=== PATIENT | male | born 1940 | race Caucasian/White ===

== ENCOUNTER 2018-08-02 15:50 | Inpatient (IN) ==
[2018-08-02] MEDS: ALBUTEROL/IPRATROPIUM 3 ML NEB RESP TX SCH ×2 (16:45→19:03)
[2018-08-02] MEDS ORDERED: methylPREDNISolone SOD SUC 125 MG/2 ML VIAL IV SCH (17:00)
[2018-08-02] MEDS ORDERED: ONDANSETRON 4 MG/2 ML VIAL IV PRN (17:19)
[2018-08-02] MEDS ORDERED: ACETAMINOPHEN 325 MG TABLET PO PRN (17:19)
[2018-08-02] MEDS ORDERED: AMINOPHYLLINE 250 MG in SODIUM CHLORIDE 0.9% 100 ML IV ONE (17:21)
[2018-08-02 17:53] LABS: Basophils % 0.1 % (0.0-0.8); Hemoglobin 14.2 GM/DL (14.0-18.0); Immature Granulocytes % 0.3 %; Immature Granulocytes Absolute 0.04 #; Lymphocytes # 0.9 10*3/uL (1.4-4.0); Lymphocytes % 7.7 % (21.2-54.2); Mean Corpuscular HGB Conc 31.6 GM/DL (32-36); Mean Corpuscular Hemoglobin 26 PG (27-34); Mean Corpuscular Volume 83.3 FL (87-102); Mean Platelet Volume 10.9 FL (9.6-12.0); Monocytes # 0.8 10*3/uL (0.11-0.8); Monocytes % 6.6 % (1.7-12.7); Neutrophils # 9.8 10*3/uL (1.4-7.4); Neutrophils % 85.3 % (38.7-73.9); Platelet Count 144 T/CUMM (130-400); Red Cell Distribution Width 16.6 % (9.3-17.3); White Blood Count 11.5 T/CUMM (4-12)
[2018-08-02] MEDS ORDERED: PIPERACILLIN/TAZOBACTAM 3,375 MG in SODIUM CHLORIDE 0.9% 100 ML IV SCH (18:00)
[2018-08-02] MEDS: methylPREDNISolone SOD SUC 40 MG/1 ML VIAL IV SCH (18:07)
[2018-08-02 18:11] LABS: Calcium 9.2 MG/DL (8.5-10.1); Osmolality,Calculated 284.3 MOS/KG (273-304); Potassium 4.9 MMOL/L (3.5-5.1)
[2018-08-02] MEDS ORDERED: DEXTROSE 50% 25 GM/50 ML SYRINGE IV PRN (18:17)
[2018-08-02] MEDS ORDERED: GLUCAGON 1 MG VIAL IM PRN (18:17)
[2018-08-02] MEDS: AMINOPHYLLINE 500 MG in SODIUM CHLORIDE 0.9% 480 ML IV SCH (18:20)
[2018-08-02] MEDS: PIPERACILLIN/TAZOBACTAM 3,375 MG in SODIUM CHLORIDE 0.9% 100 ML IV SCH (18:24)
[2018-08-02] MEDS: SODIUM CHLORIDE 0.9% 1,000 ML IV SCH (19:07)
[2018-08-02] MEDS: LEVOFLOXACIN INJ 750 MG in PREMIX 1 EACH IV SCH (21:06)
[2018-08-02] MEDS: DILTIAZEM CD 180 MG CAPSULE PO SCH (21:13)
[2018-08-02] MEDS: guaiFENesin/DM ER 600-30 MG TABLET PO SCH (21:13)
[2018-08-02] MEDS: MONTELUKAST 10 MG TABLET PO SCH (21:14)
[2018-08-02] MEDS: INSULIN REGULAR 100 UNIT/ML SUBCUT SCH (21:14)
[2018-08-02] MEDS: BUDESONIDE/FORMOTEROL 160-4.5 INHALER 6 GM INH SCH (21:17)
[2018-08-02] MEDS: APIXABAN 5 MG TABLET PO SCH (21:21)
[2018-08-03] MEDS: ALBUTEROL/IPRATROPIUM 3 ML NEB RESP TX SCH ×4 (00:36→19:38)
[2018-08-03] MEDS: methylPREDNISolone SOD SUC 40 MG/1 ML VIAL IV SCH ×5 (01:19→23:01)
[2018-08-03] MEDS: PIPERACILLIN/TAZOBACTAM 3,375 MG in SODIUM CHLORIDE 0.9% 100 ML IV SCH ×3 (01:30→17:56)
[2018-08-03 04:42] LABS: Calcium 8.8 MG/DL (8.5-10.1); Osmolality,Calculated 284.4 MOS/KG (273-304); Potassium 3.8 MMOL/L (3.5-5.1); Thyroid Stimulating Hormone 0.836 uIU/ml (0.358-3.74)
[2018-08-03] MEDS: SODIUM CHLORIDE 0.9% 1,000 ML IV SCH ×2 (05:07→14:41)
[2018-08-03] MEDS: AMINOPHYLLINE 500 MG in SODIUM CHLORIDE 0.9% 480 ML IV SCH ×2 (06:45→17:56)
[2018-08-03] MEDS: ALUMINUM/MAGNES/SIMETH MAX STR 30 ML UDCUP PO PRN ×2 (08:36→22:18)
[2018-08-03] MEDS: MONTELUKAST 10 MG TABLET PO SCH ×2 (08:38→22:19)
[2018-08-03] MEDS: APIXABAN 5 MG TABLET PO SCH ×2 (08:38→22:19)
[2018-08-03] MEDS: guaiFENesin/DM ER 600-30 MG TABLET PO SCH ×2 (08:38→22:19)
[2018-08-03] MEDS: DILTIAZEM CD 180 MG CAPSULE PO SCH ×2 (08:39→22:19)
[2018-08-03] MEDS: BUDESONIDE/FORMOTEROL 160-4.5 INHALER 6 GM INH SCH ×2 (08:39→23:37)
[2018-08-03] MEDS: PANTOPRAZOLE 40 MG TABLET PO SCH (08:39)
[2018-08-03] MEDS: INSULIN REGULAR 100 UNIT/ML SUBCUT SCH ×4 (08:40→22:20)
[2018-08-03 09:24] LABS: Albumin 3.3 G/DL (3.4-5.0); Bilirubin,Direct 0.16 MG/DL (0.0-0.20); Bilirubin,Indirect 0.3 MG/DL (0.0-1.0); Bilirubin,Total 0.5 MG/DL (0.2-1.0); Total Protein 7.3 G/DL (6.4-8.3)
[2018-08-03] MEDS: LORazepam 2 MG/1 ML VIAL IV PRN (09:59)
[2018-08-03] MEDS ORDERED: ALUM/MAG/SIMETH/LIDO VISC 1:1 30 ML BOTTLE PO ONE (14:34)
[2018-08-04] MEDS ORDERED: PROMETHAZINE INJ 12.5 MG in SODIUM CHLORIDE 0.9% 50 ML IV ONE (00:40)
[2018-08-04] MEDS ORDERED: LEVALBUTEROL 1.25 MG/3 ML NEB RESP TX PRN (00:53)
[2018-08-04] MEDS ORDERED: LEVALBUTEROL 1.25 MG/3 ML NEB RESP TX SCH (01:07)
[2018-08-04] MEDS: ALBUTEROL/IPRATROPIUM 3 ML NEB RESP TX SCH (01:14)
[2018-08-04 01:46] LABS: Troponin I 0.108 NG/ML (0.00-0.045)
[2018-08-04] MEDS: LEVOFLOXACIN INJ 750 MG in PREMIX 1 EACH IV SCH (03:31)
[2018-08-04] MEDS: PIPERACILLIN/TAZOBACTAM 3,375 MG in SODIUM CHLORIDE 0.9% 100 ML IV SCH ×3 (06:18→18:40)
[2018-08-04] MEDS: methylPREDNISolone SOD SUC 40 MG/1 ML VIAL IV SCH ×3 (06:19→18:01)
[2018-08-04] MEDS: ALUMINUM/MAGNES/SIMETH MAX STR 30 ML UDCUP PO PRN (06:21)
[2018-08-04 06:32] LABS: Basophils % 0.1 % (0.0-0.8); Hematocrit 40.5 VOL% (42.0-52.0); Hemoglobin 12.5 GM/DL (14.0-18.0); Immature Granulocytes % 1.5 %; Immature Granulocytes Absolute 0.37 #; Lymphocytes # 0.6 10*3/uL (1.4-4.0); Lymphocytes % 2.3 % (21.2-54.2); Mean Corpuscular HGB Conc 30.9 GM/DL (32-36); Mean Corpuscular Hemoglobin 26 PG (27-34); Mean Corpuscular Volume 83.5 FL (87-102); Mean Platelet Volume 11.5 FL (9.6-12.0); Monocytes # 1.6 10*3/uL (0.11-0.8); Monocytes % 6.8 % (1.7-12.7); Neutrophils # 21.4 10*3/uL (1.4-7.4); Neutrophils % 89.3 % (38.7-73.9); Platelet Count 205 T/CUMM (130-400); Red Blood Count 4.85 MC/CUMM (3.8-5.5); Red Cell Distribution Width 16.4 % (9.3-17.3)
[2018-08-04 06:53] LABS: Band Neutrophils 1 % (0-10); Lymphocytes 3 % (20-55); Platelet Estimate Adequate; Segmented Neutrophils 90 % (50-85); Total Cells Counted 100
[2018-08-04 06:54] LABS: Hypochromasia 1+
[2018-08-04 06:59] LABS: Bilirubin,Total 0.4 MG/DL (0.2-1.0); Calcium 8.3 MG/DL (8.5-10.1); Osmolality,Calculated 293.3 MOS/KG (273-304); Potassium 3.9 MMOL/L (3.5-5.1); Total Protein 6.6 G/DL (6.4-8.3)
[2018-08-04 07:13] LABS: % Iron Saturation 9.6 % (18-50)
[2018-08-04] MEDS: LEVALBUTEROL 1.25 MG/3 ML NEB RESP TX SCH ×3 (08:00→19:58)
[2018-08-04] MEDS: PANTOPRAZOLE 40 MG TABLET PO SCH (09:49)
[2018-08-04] MEDS: MONTELUKAST 10 MG TABLET PO SCH ×2 (09:49→21:47)
[2018-08-04] MEDS: guaiFENesin/DM ER 600-30 MG TABLET PO SCH ×2 (09:50→21:47)
[2018-08-04] MEDS: DILTIAZEM CD 180 MG CAPSULE PO SCH ×2 (09:50→21:47)
[2018-08-04] MEDS: APIXABAN 5 MG TABLET PO SCH ×2 (09:50→21:48)
[2018-08-04] MEDS: INSULIN REGULAR 100 UNIT/ML SUBCUT SCH ×4 (09:50→21:48)
[2018-08-04] MEDS: BUDESONIDE/FORMOTEROL 160-4.5 INHALER 6 GM INH SCH ×2 (09:51→21:49)
[2018-08-04] MEDS: FERROUS SULFATE 325 MG TABLET PO SCH ×2 (13:32→21:47)
[2018-08-04] MEDS: ALBUTEROL/IPRATROPIUM 3 ML NEB RESP TX PRN (17:21)
[2018-08-04] MEDS: SODIUM CHLORIDE 0.9% 1,000 ML IV SCH ×2 (17:59)
[2018-08-04] MEDS: AMINOPHYLLINE 500 MG in SODIUM CHLORIDE 0.9% 480 ML IV SCH (18:05)
[2018-08-04] MEDS: ALUMINUM/MAGNES/SIMETH MAX STR 30 ML UDCUP PO SCH (21:48)
[2018-08-04] MEDS: LORazepam 2 MG/1 ML VIAL IV PRN (21:58)
[2018-08-05] MEDS ORDERED: FUROSEMIDE 20 MG/2 ML VIAL IV ONE (00:36)
[2018-08-05] MEDS: methylPREDNISolone SOD SUC 40 MG/1 ML VIAL IV SCH ×2 (03:53→16:49)
[2018-08-05] MEDS: PIPERACILLIN/TAZOBACTAM 3,375 MG in SODIUM CHLORIDE 0.9% 100 ML IV SCH ×3 (03:56→18:52)
[2018-08-05 04:46] LABS: Basophils % 0.1 % (0.0-0.8); Hematocrit 37.4 VOL% (42.0-52.0); Hemoglobin 11.4 GM/DL (14.0-18.0); Immature Granulocytes % 1.5 %; Immature Granulocytes Absolute 0.31 #; Lymphocytes # 0.3 10*3/uL (1.4-4.0); Lymphocytes % 1.4 % (21.2-54.2); Mean Corpuscular HGB Conc 30.5 GM/DL (32-36); Mean Corpuscular Hemoglobin 26 PG (27-34); Mean Corpuscular Volume 84.8 FL (87-102); Mean Platelet Volume 11.8 FL (9.6-12.0); Monocytes # 1.1 10*3/uL (0.11-0.8); Monocytes % 5.4 % (1.7-12.7); Neutrophils % 91.6 % (38.7-73.9); Platelet Count 161 T/CUMM (130-400); Red Blood Count 4.41 MC/CUMM (3.8-5.5); Red Cell Distribution Width 16.4 % (9.3-17.3); White Blood Count 20.8 T/CUMM (4-12)
[2018-08-05 05:20] LABS: Osmolality,Calculated 287.4 MOS/KG (273-304); Potassium 4.3 MMOL/L (3.5-5.1)
[2018-08-05 06:06] LABS: Lymphocytes 1 % (20-55); Segmented Neutrophils 93 % (50-85); Total Cells Counted 100
[2018-08-05 06:07] LABS: Anisocytosis 1+; Platelet Estimate Adequate
[2018-08-05] MEDS: SODIUM CHLORIDE 0.9% 1,000 ML IV SCH (07:20)
[2018-08-05] MEDS: ALBUTEROL/IPRATROPIUM 3 ML NEB RESP TX PRN (07:55)
[2018-08-05] MEDS: LEVALBUTEROL 1.25 MG/3 ML NEB RESP TX SCH ×4 (08:01→19:47)
[2018-08-05] MEDS: APIXABAN 5 MG TABLET PO SCH (10:01)
[2018-08-05] MEDS: MONTELUKAST 10 MG TABLET PO SCH ×2 (10:01→22:29)
[2018-08-05] MEDS: guaiFENesin/DM ER 600-30 MG TABLET PO SCH ×2 (10:01→22:30)
[2018-08-05] MEDS: BENZONATATE 100 MG CAPSULE PO PRN ×2 (10:02→22:30)
[2018-08-05] MEDS: DILTIAZEM CD 180 MG CAPSULE PO SCH ×2 (10:02→22:50)
[2018-08-05] MEDS: FERROUS SULFATE 325 MG TABLET PO SCH ×2 (10:02→22:29)
[2018-08-05] MEDS: PANTOPRAZOLE 40 MG TABLET PO SCH ×2 (10:02→22:29)
[2018-08-05] MEDS: ALUMINUM/MAGNES/SIMETH MAX STR 30 ML UDCUP PO SCH ×3 (10:03→22:28)
[2018-08-05] MEDS: CLORAZEPATE 3.75 MG TABLET PO SCH ×2 (10:06→22:30)
[2018-08-05] MEDS: INSULIN REGULAR 100 UNIT/ML SUBCUT SCH ×4 (10:20→22:26)
[2018-08-05] MEDS: BUDESONIDE/FORMOTEROL 160-4.5 INHALER 6 GM INH SCH (10:25)
[2018-08-05] MEDS ORDERED: DILTIAZEM 30 MG TABLET PO ONE (10:40)
[2018-08-05] MEDS: BUDESONIDE 0.5 MG/2 ML NEB RESP TX SCH ×2 (11:20→19:47)
[2018-08-05] MEDS: ARFORMOTEROL 15 MCG/2 ML NEB RESP TX SCH ×2 (11:20→19:47)
[2018-08-05 11:26] LABS: % Iron Saturation 7.9 % (18-50)
[2018-08-05] MEDS: ENOXAPARIN 100 MG/ML SYRINGE SUBCUT SCH ×2 (13:22→22:30)
[2018-08-05 13:25] LABS: Folate 19.4 NG/ML (5.4-24.0)
[2018-08-05] MEDS: LEVOFLOXACIN INJ 250 MG in PREMIX 1 EACH IV SCH (14:01)
[2018-08-05] MEDS: SUCRALFATE 1 GM/10 ML UDCUP PO SCH ×2 (16:49→22:29)
[2018-08-06] MEDS: LEVALBUTEROL 1.25 MG/3 ML NEB RESP TX SCH ×4 (00:38→20:05)
[2018-08-06] MEDS: methylPREDNISolone SOD SUC 40 MG/1 ML VIAL IV SCH ×2 (04:01→17:00)
[2018-08-06] MEDS: PIPERACILLIN/TAZOBACTAM 3,375 MG in SODIUM CHLORIDE 0.9% 100 ML IV SCH ×3 (04:03→18:05)
[2018-08-06] MEDS: AMINOPHYLLINE 500 MG in SODIUM CHLORIDE 0.9% 480 ML IV SCH ×2 (04:12→11:27)
[2018-08-06 07:44] LABS: Basophils % 0.1 % (0.0-0.8); Hematocrit 40.5 VOL% (42.0-52.0); Hemoglobin 12.6 GM/DL (14.0-18.0); Immature Granulocytes % 1.6 %; Immature Granulocytes Absolute 0.27 #; Lymphocytes # 0.3 10*3/uL (1.4-4.0); Mean Corpuscular HGB Conc 31.1 GM/DL (32-36); Mean Corpuscular Hemoglobin 26 PG (27-34); Mean Corpuscular Volume 83.5 FL (87-102); Mean Platelet Volume 11.6 FL (9.6-12.0); Monocytes # 0.9 10*3/uL (0.11-0.8); Monocytes % 5.6 % (1.7-12.7); Neutrophils # 14.9 10*3/uL (1.4-7.4); Neutrophils % 90.7 % (38.7-73.9); Platelet Count 196 T/CUMM (130-400); Red Blood Count 4.85 MC/CUMM (3.8-5.5); Red Cell Distribution Width 16.1 % (9.3-17.3); White Blood Count 16.4 T/CUMM (4-12)
[2018-08-06] MEDS: BUDESONIDE 0.5 MG/2 ML NEB RESP TX SCH ×2 (07:56→20:05)
[2018-08-06] MEDS: ARFORMOTEROL 15 MCG/2 ML NEB RESP TX SCH ×2 (07:56→20:05)
[2018-08-06 08:07] LABS: Calcium 8.5 MG/DL (8.5-10.1); Osmolality,Calculated 284.4 MOS/KG (273-304); Potassium 4.2 MMOL/L (3.5-5.1)
[2018-08-06 08:38] LABS: Platelet Estimate Normal; Polychromasia Slight; Segmented Neutrophils 95 % (50-85); Total Cells Counted 100
[2018-08-06] MEDS: PANTOPRAZOLE 40 MG TABLET PO SCH ×2 (10:23→22:04)
[2018-08-06] MEDS: DILTIAZEM CD 180 MG CAPSULE PO SCH ×2 (10:24→22:03)
[2018-08-06] MEDS: CLORAZEPATE 3.75 MG TABLET PO SCH ×2 (10:24→22:04)
[2018-08-06] MEDS: MONTELUKAST 10 MG TABLET PO SCH ×2 (10:24→22:04)
[2018-08-06] MEDS: SUCRALFATE 1 GM/10 ML UDCUP PO SCH ×4 (10:25→22:04)
[2018-08-06] MEDS: guaiFENesin/DM ER 600-30 MG TABLET PO SCH ×2 (10:25→22:03)
[2018-08-06] MEDS: ENOXAPARIN 100 MG/ML SYRINGE SUBCUT SCH ×2 (10:25→22:17)
[2018-08-06] MEDS: FERROUS SULFATE 325 MG TABLET PO SCH ×2 (10:25→22:03)
[2018-08-06] MEDS: ALUMINUM/MAGNES/SIMETH MAX STR 30 ML UDCUP PO SCH ×3 (10:26→22:04)
[2018-08-06] MEDS: LEVOFLOXACIN INJ 250 MG in PREMIX 1 EACH IV SCH (10:26)
[2018-08-06] MEDS: INSULIN REGULAR 100 UNIT/ML SUBCUT SCH ×4 (10:26→21:21)
[2018-08-06] MEDS ORDERED: KETOROLAC 30 MG/1 ML VIAL IV ONE (11:01)
[2018-08-06] MEDS ORDERED: ALUM/MAG/SIMETH/LIDO VISC 1:1 30 ML BOTTLE PO ONE (11:01)
[2018-08-06] MEDS ORDERED: MORPHINE 4 MG/1 ML VIAL ONE (11:07)
[2018-08-06] MEDS ORDERED: ASPIRIN 325 MG TABLET ONE (11:07)
[2018-08-06] MEDS ORDERED: NITROGLYCERIN SL 0.4 MG TABLET SL ONE (11:07)
[2018-08-06] MEDS ORDERED: methylPREDNISolone SOD SUC 125 MG/2 ML VIAL IV ONE (11:08)
[2018-08-06] MEDS ORDERED: FUROSEMIDE 40 MG/4 ML VIAL ONE (11:08)
[2018-08-06] MEDS ORDERED: FUROSEMIDE 40 MG/4 ML VIAL IV ONE (11:08)
[2018-08-06] MEDS ORDERED: ALBUTEROL/IPRATROPIUM 3 ML NEB RESP TX ONE (11:11)
[2018-08-06 11:59] LABS: ABG Base Excess 3.3 MMOL/L (-2.5-2.5); ABG HCO3 26.8 MMOL/L (20-26); ABG Oxygen Saturation 98.7 % (95-100); ABG PCO2 37.2 MM HG (35-48); ABG PH 7.475 (7.35-7.45); ABG PO2 145.1 MM HG (80-95); ABG TCO2 27.9 MMOL/L (23-27); Allen Test Positive
[2018-08-07] MEDS: AMINOPHYLLINE 500 MG in SODIUM CHLORIDE 0.9% 480 ML IV SCH (00:38)
[2018-08-07] MEDS: LEVALBUTEROL 1.25 MG/3 ML NEB RESP TX SCH ×4 (00:54→20:05)
[2018-08-07] MEDS: PIPERACILLIN/TAZOBACTAM 3,375 MG in SODIUM CHLORIDE 0.9% 100 ML IV SCH ×3 (02:45→17:40)
[2018-08-07] MEDS: methylPREDNISolone SOD SUC 40 MG/1 ML VIAL IV SCH ×2 (05:03→16:09)
[2018-08-07 05:35] LABS: Basophils % 0.2 % (0.0-0.8); Hemoglobin 11.2 GM/DL (14.0-18.0); Immature Granulocytes % 2.1 %; Immature Granulocytes Absolute 0.26 #; Lymphocytes # 0.2 10*3/uL (1.4-4.0); Lymphocytes % 1.7 % (21.2-54.2); Mean Corpuscular HGB Conc 31.1 GM/DL (32-36); Mean Corpuscular Hemoglobin 26 PG (27-34); Mean Corpuscular Volume 82.6 FL (87-102); Mean Platelet Volume 11.4 FL (9.6-12.0); Monocytes # 0.9 10*3/uL (0.11-0.8); Monocytes % 6.9 % (1.7-12.7); Neutrophils % 89.1 % (38.7-73.9); Platelet Count 166 T/CUMM (130-400); Red Blood Count 4.36 MC/CUMM (3.8-5.5); Red Cell Distribution Width 15.9 % (9.3-17.3); White Blood Count 12.4 T/CUMM (4-12)
[2018-08-07 05:52] LABS: Osmolality,Calculated 288.3 MOS/KG (273-304); Potassium 3.8 MMOL/L (3.5-5.1)
[2018-08-07 05:57] LABS: Band Neutrophils 1 % (0-10); Lymphocytes 1 % (20-55); Segmented Neutrophils 95 % (50-85); Total Cells Counted 100
[2018-08-07 06:00] LABS: Hypochromasia 1+
[2018-08-07 06:01] LABS: Microcytosis 1+; Platelet Estimate Adequate
[2018-08-07] MEDS: ARFORMOTEROL 15 MCG/2 ML NEB RESP TX SCH ×2 (07:03→20:05)
[2018-08-07] MEDS: BUDESONIDE 0.5 MG/2 ML NEB RESP TX SCH ×2 (07:03→20:05)
[2018-08-07] MEDS: SUCRALFATE 1 GM/10 ML UDCUP PO SCH ×4 (07:05→21:25)
[2018-08-07] MEDS: INSULIN REGULAR 100 UNIT/ML SUBCUT SCH ×4 (08:37→20:03)
[2018-08-07] MEDS: PANTOPRAZOLE 40 MG TABLET PO SCH ×2 (08:38→21:27)
[2018-08-07] MEDS: ALUMINUM/MAGNES/SIMETH MAX STR 30 ML UDCUP PO SCH ×3 (08:38→21:24)
[2018-08-07] MEDS: MONTELUKAST 10 MG TABLET PO SCH ×2 (08:39→21:26)
[2018-08-07] MEDS: DILTIAZEM CD 180 MG CAPSULE PO SCH ×2 (08:39→21:27)
[2018-08-07] MEDS: FERROUS SULFATE 325 MG TABLET PO SCH ×2 (08:39→21:27)
[2018-08-07] MEDS: BENZONATATE 100 MG CAPSULE PO PRN ×2 (08:39→21:26)
[2018-08-07] MEDS: CLORAZEPATE 3.75 MG TABLET PO SCH ×2 (08:39→21:27)
[2018-08-07] MEDS: guaiFENesin/DM ER 600-30 MG TABLET PO SCH ×2 (08:39→21:27)
[2018-08-07] MEDS: ENOXAPARIN 100 MG/ML SYRINGE SUBCUT SCH (10:40)
[2018-08-07] MEDS: LEVOFLOXACIN INJ 250 MG in PREMIX 1 EACH IV SCH (10:40)
[2018-08-07] MEDS: THEOPHYLLINE ER (24 HR) 200 MG CAPSULE PO SCH (16:09)
[2018-08-07] MEDS ORDERED: POTASSIUM CHLORIDE 20 MEQ TABLET PO PRN (19:25)
[2018-08-07] MEDS: LORazepam 2 MG/1 ML VIAL IV PRN (21:24)
[2018-08-08] MEDS: LEVALBUTEROL 1.25 MG/3 ML NEB RESP TX SCH ×4 (00:52→20:00)
[2018-08-08] MEDS: methylPREDNISolone SOD SUC 40 MG/1 ML VIAL IV SCH ×2 (03:34→16:59)
[2018-08-08] MEDS: PIPERACILLIN/TAZOBACTAM 3,375 MG in SODIUM CHLORIDE 0.9% 100 ML IV SCH ×3 (03:35→18:36)
[2018-08-08 06:03] LABS: Basophils % 0.2 % (0.0-0.8); Hematocrit 41.5 VOL% (42.0-52.0); Hemoglobin 12.8 GM/DL (14.0-18.0); Immature Granulocytes Absolute 0.33 #; Lymphocytes # 0.3 10*3/uL (1.4-4.0); Mean Corpuscular HGB Conc 30.8 GM/DL (32-36); Mean Corpuscular Hemoglobin 26 PG (27-34); Mean Corpuscular Volume 83.5 FL (87-102); Mean Platelet Volume 11.4 FL (9.6-12.0); Monocytes % 6.2 % (1.7-12.7); Neutrophils # 14.6 10*3/uL (1.4-7.4); Neutrophils % 89.6 % (38.7-73.9); Platelet Count 225 T/CUMM (130-400); Red Blood Count 4.97 MC/CUMM (3.8-5.5); Red Cell Distribution Width 15.9 % (9.3-17.3); White Blood Count 16.3 T/CUMM (4-12)
[2018-08-08 06:05] LABS: PT Patient Result 10.4 SECS; Partial Thromboplastin Time 25.8 SECS (0-40)
[2018-08-08 06:35] LABS: Hypochromasia 1+; Lymphocytes 1 % (20-55); Microcytosis 1+; Platelet Estimate Adequate; Segmented Neutrophils 95 % (50-85); Total Cells Counted 100
[2018-08-08] MEDS ORDERED: diphenhydrAMINE 50 MG/1 ML VIAL IM ONE (07:30)
[2018-08-08] MEDS ORDERED: MEPERIDINE 50 MG/1 ML VIAL IM ONE (07:30)
[2018-08-08] MEDS ORDERED: BENZONATATE 100 MG CAPSULE PO ONE (07:30)
[2018-08-08] MEDS: ARFORMOTEROL 15 MCG/2 ML NEB RESP TX SCH ×2 (07:35→20:00)
[2018-08-08] MEDS: BUDESONIDE 0.5 MG/2 ML NEB RESP TX SCH ×2 (07:35→20:00)
[2018-08-08] MEDS ORDERED: LIDOCAINE 1% 20 ML VIAL MISC INJ ONE (08:00)
[2018-08-08] MEDS ORDERED: LIDOCAINE 2% VISCOUS 100 ML BOTTLE SWISH/SPIT ONE (08:00)
[2018-08-08] MEDS ORDERED: LIDOCAINE 2% 20 ML VIAL RESP TX ONE (08:00)
[2018-08-08] MEDS: SUCRALFATE 1 GM/10 ML UDCUP PO SCH ×4 (08:22→20:05)
[2018-08-08] MEDS: INSULIN REGULAR 100 UNIT/ML SUBCUT SCH ×4 (08:23→21:50)
[2018-08-08] MEDS: LEVOFLOXACIN INJ 250 MG in PREMIX 1 EACH IV SCH (10:01)
[2018-08-08] MEDS: guaiFENesin/DM ER 600-30 MG TABLET PO SCH ×2 (14:48→20:05)
[2018-08-08] MEDS: PANTOPRAZOLE 40 MG TABLET PO SCH ×2 (14:48→20:05)
[2018-08-08] MEDS: MONTELUKAST 10 MG TABLET PO SCH ×2 (14:49→20:05)
[2018-08-08] MEDS: CLORAZEPATE 3.75 MG TABLET PO SCH ×2 (14:49→20:05)
[2018-08-08] MEDS: FERROUS SULFATE 325 MG TABLET PO SCH ×2 (14:49→20:05)
[2018-08-08] MEDS: POLYETHYLENE GLYCOL POWDER 17 GM PACK PO SCH (14:49)
[2018-08-08] MEDS: ALUMINUM/MAGNES/SIMETH MAX STR 30 ML UDCUP PO SCH ×3 (14:52→20:05)
[2018-08-08] MEDS: DILTIAZEM CD 180 MG CAPSULE PO SCH ×2 (14:53→20:05)
[2018-08-08] MEDS: THEOPHYLLINE ER (24 HR) 200 MG CAPSULE PO SCH (16:54)
[2018-08-08] MEDS: LORazepam 2 MG/1 ML VIAL IV PRN (21:26)
[2018-08-09] MEDS: LORazepam 2 MG/1 ML VIAL IV PRN ×2 (01:57→06:13)
[2018-08-09] MEDS: PIPERACILLIN/TAZOBACTAM 3,375 MG in SODIUM CHLORIDE 0.9% 100 ML IV SCH ×2 (01:58→14:07)
[2018-08-09 05:41] LABS: Basophils % 0.2 % (0.0-0.8); Hematocrit 41.9 VOL% (42.0-52.0); Hemoglobin 12.9 GM/DL (14.0-18.0); Immature Granulocytes % 2.2 %; Immature Granulocytes Absolute 0.34 #; Lymphocytes # 0.3 10*3/uL (1.4-4.0); Mean Corpuscular HGB Conc 30.8 GM/DL (32-36); Mean Corpuscular Hemoglobin 26 PG (27-34); Mean Corpuscular Volume 84.3 FL (87-102); Monocytes # 1.3 10*3/uL (0.11-0.8); Monocytes % 8.3 % (1.7-12.7); NRBC # 0.02 10*3/uL; Neutrophils # 13.4 10*3/uL (1.4-7.4); Neutrophils % 87.3 % (38.7-73.9); Platelet Count 208 T/CUMM (130-400); Red Blood Count 4.97 MC/CUMM (3.8-5.5); Red Cell Distribution Width 15.9 % (9.3-17.3); White Blood Count 15.3 T/CUMM (4-12)
[2018-08-09 05:57] LABS: Calcium 8.4 MG/DL (8.5-10.1); Osmolality,Calculated 285.4 MOS/KG (273-304); Potassium 4.6 MMOL/L (3.5-5.1)
[2018-08-09] MEDS: methylPREDNISolone SOD SUC 40 MG/1 ML VIAL IV SCH ×2 (06:12→17:59)
[2018-08-09 06:24] LABS: Lymphocytes 7 % (20-55); Segmented Neutrophils 86 % (50-85); Total Cells Counted 100
[2018-08-09 06:25] LABS: Atypical Lymphocytes Few; Hypersegmented Neutrophil SLIGHT; Hypochromasia 1+; Microcytosis 1+; Platelet Estimate Normal
[2018-08-09] MEDS: INSULIN REGULAR 100 UNIT/ML SUBCUT SCH ×4 (06:38→22:27)
[2018-08-09] MEDS: ARFORMOTEROL 15 MCG/2 ML NEB RESP TX SCH (07:35)
[2018-08-09] MEDS: BUDESONIDE 0.5 MG/2 ML NEB RESP TX SCH ×2 (07:35→19:59)
[2018-08-09] MEDS: LEVALBUTEROL 1.25 MG/3 ML NEB RESP TX SCH ×4 (07:35→19:59)
[2018-08-09] MEDS ORDERED: APIXABAN 5 MG TABLET PO SCH (09:00)
[2018-08-09] MEDS: LEVOFLOXACIN INJ 250 MG in PREMIX 1 EACH IV SCH (09:24)
[2018-08-09] MEDS: MONTELUKAST 10 MG TABLET PO SCH ×2 (09:25→22:25)
[2018-08-09] MEDS: POLYETHYLENE GLYCOL POWDER 17 GM PACK PO SCH (09:25)
[2018-08-09] MEDS: SUCRALFATE 1 GM/10 ML UDCUP PO SCH ×4 (09:25→22:32)
[2018-08-09] MEDS: CLORAZEPATE 3.75 MG TABLET PO SCH ×2 (09:26→22:26)
[2018-08-09] MEDS: ALUMINUM/MAGNES/SIMETH MAX STR 30 ML UDCUP PO SCH ×3 (09:26→22:28)
[2018-08-09] MEDS: guaiFENesin/DM ER 600-30 MG TABLET PO SCH ×2 (09:26→22:25)
[2018-08-09] MEDS: DILTIAZEM CD 180 MG CAPSULE PO SCH ×2 (09:26→22:32)
[2018-08-09] MEDS: FERROUS SULFATE 325 MG TABLET PO SCH ×2 (09:27→22:26)
[2018-08-09] MEDS: PANTOPRAZOLE 40 MG TABLET PO SCH ×2 (09:27→22:32)
[2018-08-09] MEDS: BISACODYL 10 MG SUPP RECTAL ONE ×2 (13:54→14:03)
[2018-08-09] MEDS: THEOPHYLLINE ER (24 HR) 200 MG CAPSULE PO SCH (17:59)
[2018-08-09] MEDS: APIXABAN 2.5 MG TABLET PO SCH (22:26)
[2018-08-10] MEDS: LEVALBUTEROL 1.25 MG/3 ML NEB RESP TX SCH ×4 (00:52→19:57)
[2018-08-10] MEDS: PIPERACILLIN/TAZOBACTAM 3,375 MG in SODIUM CHLORIDE 0.9% 100 ML IV SCH ×2 (01:12→06:58)
[2018-08-10] MEDS: methylPREDNISolone SOD SUC 40 MG/1 ML VIAL IV SCH (04:23)
[2018-08-10] MEDS: ALBUTEROL/IPRATROPIUM 3 ML NEB RESP TX PRN (07:27)
[2018-08-10] MEDS: BUDESONIDE 0.5 MG/2 ML NEB RESP TX SCH ×2 (07:27→19:57)
[2018-08-10] MEDS: INSULIN REGULAR 100 UNIT/ML SUBCUT SCH ×4 (08:50→21:37)
[2018-08-10] MEDS: LEVOFLOXACIN INJ 250 MG in PREMIX 1 EACH IV SCH (09:20)
[2018-08-10] MEDS: PANTOPRAZOLE 40 MG TABLET PO SCH ×2 (09:21→21:37)
[2018-08-10] MEDS: ALUMINUM/MAGNES/SIMETH MAX STR 30 ML UDCUP PO SCH ×3 (09:21→21:36)
[2018-08-10] MEDS: DILTIAZEM CD 180 MG CAPSULE PO SCH ×2 (09:21→21:36)
[2018-08-10] MEDS: POLYETHYLENE GLYCOL POWDER 17 GM PACK PO SCH (09:21)
[2018-08-10] MEDS: guaiFENesin/DM ER 600-30 MG TABLET PO SCH ×2 (09:21→21:36)
[2018-08-10] MEDS: MONTELUKAST 10 MG TABLET PO SCH ×2 (09:21→21:36)
[2018-08-10] MEDS: APIXABAN 2.5 MG TABLET PO SCH ×2 (09:21→21:36)
[2018-08-10] MEDS: SUCRALFATE 1 GM/10 ML UDCUP PO SCH ×4 (09:22→21:36)
[2018-08-10] MEDS: CLORAZEPATE 3.75 MG TABLET PO SCH ×2 (09:22→21:36)
[2018-08-10] MEDS: FERROUS SULFATE 325 MG TABLET PO SCH ×2 (09:22→21:36)
[2018-08-10] MEDS: methylPREDNISolone 4 MG TABLET PO SCH (14:12)
[2018-08-10] MEDS: BENZONATATE 100 MG CAPSULE PO PRN (14:13)
[2018-08-10] MEDS: THEOPHYLLINE ER (24 HR) 200 MG CAPSULE PO SCH (17:40)
[2018-08-11] MEDS: LEVALBUTEROL 1.25 MG/3 ML NEB RESP TX SCH ×2 (02:00→07:20)
[2018-08-11 04:59] LABS: Calcium 8.4 MG/DL (8.5-10.1); Osmolality,Calculated 282.4 MOS/KG (273-304); Potassium 4.5 MMOL/L (3.5-5.1)
[2018-08-11 05:28] LABS: Basophils % 0.2 % (0.0-0.8); Hematocrit 41.5 VOL% (42.0-52.0); Hemoglobin 12.7 GM/DL (14.0-18.0); Immature Granulocytes % 2.9 %; Immature Granulocytes Absolute 0.49 #; Lymphocytes # 0.4 10*3/uL (1.4-4.0); Lymphocytes % 2.4 % (21.2-54.2); Mean Corpuscular HGB Conc 30.6 GM/DL (32-36); Mean Corpuscular Hemoglobin 26 PG (27-34); Mean Corpuscular Volume 84.3 FL (87-102); Mean Platelet Volume 11.7 FL (9.6-12.0); Monocytes # 1.2 10*3/uL (0.11-0.8); Monocytes % 7.3 % (1.7-12.7); Neutrophils # 14.7 10*3/uL (1.4-7.4); Neutrophils % 87.2 % (38.7-73.9); Platelet Count 162 T/CUMM (130-400); Red Blood Count 4.92 MC/CUMM (3.8-5.5); Red Cell Distribution Width 16.6 % (9.3-17.3); White Blood Count 16.9 T/CUMM (4-12)
[2018-08-11 05:42] LABS: Lymphocytes 3 % (20-55); Platelet Estimate Normal; Segmented Neutrophils 95 % (50-85); Total Cells Counted 100
[2018-08-11 05:43] LABS: Polychromasia Few
[2018-08-11] MEDS: BUDESONIDE 0.5 MG/2 ML NEB RESP TX SCH (07:20)
[2018-08-11] MEDS: POLYETHYLENE GLYCOL POWDER 17 GM PACK PO SCH (08:55)
[2018-08-11] MEDS: CLORAZEPATE 3.75 MG TABLET PO SCH (08:56)
[2018-08-11] MEDS: MONTELUKAST 10 MG TABLET PO SCH (08:56)
[2018-08-11] MEDS: PANTOPRAZOLE 40 MG TABLET PO SCH (08:57)
[2018-08-11] MEDS: APIXABAN 2.5 MG TABLET PO SCH (08:57)
[2018-08-11] MEDS: FERROUS SULFATE 325 MG TABLET PO SCH (08:57)
[2018-08-11] MEDS: DILTIAZEM CD 180 MG CAPSULE PO SCH (08:58)
[2018-08-11] MEDS: guaiFENesin/DM ER 600-30 MG TABLET PO SCH (08:58)
[2018-08-11] MEDS ORDERED: LEVOFLOXACIN 500 MG TABLET PO ONE (09:00)
[2018-08-11] MEDS ORDERED: methylPREDNISolone 4 MG TABLET PO SCH (09:00)
[2018-08-11] MEDS ORDERED: predniSONE 20 MG TABLET PO SCH (09:00)
[2018-08-11] MEDS: ALUMINUM/MAGNES/SIMETH MAX STR 30 ML UDCUP PO SCH (09:00)
[2018-08-11] MEDS: SUCRALFATE 1 GM/10 ML UDCUP PO SCH ×2 (09:01→13:09)
[2018-08-11] MEDS: INSULIN REGULAR 100 UNIT/ML SUBCUT SCH ×2 (09:01→13:09)
[2018-08-11] MEDS: BENZONATATE 100 MG CAPSULE PO PRN (09:23)
[2018-08-11 11:52] VITALS: BP 108/66
[2018-08-11] MEDS: methylPREDNISolone 4 MG TABLET PO SCH (13:09)
== END 2018-08-11 15:02 | disposition swing bed (61) | DRG 193 ==
LOC: SUATTDRO 16:36 → N.ICU 16:36 → N.5E 08-03 20:33 → N.ICU 08-06 11:24 → N.5E 08-08 11:07
PROVIDERS: ADMIT Internal Medicine; ATTEND Internal Medicine

== ENCOUNTER 2018-09-04 16:16 | Inpatient (IN) ==
[2018-09-04] MEDS ORDERED: ONDANSETRON 4 MG/2 ML VIAL IV STA (16:45)
[2018-09-04] MEDS ORDERED: methylPREDNISolone SOD SUC 125 MG/2 ML VIAL IV STA (16:45)
[2018-09-04] MEDS ORDERED: ALBUTEROL 2.5 MG/3 ML NEB RESP TX SCH (17:00)
[2018-09-04 17:20] LABS: Basophils % 0.4 % (0.0-0.8); Eosinophils % 0.2 % (0.00-10.9); Hematocrit 46.4 VOL% (42.0-52.0); Hemoglobin 14.3 GM/DL (14.0-18.0); Immature Granulocytes % 1.6 %; Immature Granulocytes Absolute 0.16 #; Lymphocytes # 0.7 10*3/uL (1.4-4.0); Lymphocytes % 7.3 % (21.2-54.2); Mean Corpuscular HGB Conc 30.8 GM/DL (32-36); Mean Corpuscular Hemoglobin 27 PG (27-34); Mean Corpuscular Volume 86.1 FL (87-102); Mean Platelet Volume 11.2 FL (9.6-12.0); Monocytes # 0.6 10*3/uL (0.11-0.8); Monocytes % 5.4 % (1.7-12.7); Neutrophils # 8.6 10*3/uL (1.4-7.4); Neutrophils % 85.1 % (38.7-73.9); Platelet Count 191 T/CUMM (130-400); Red Blood Count 5.39 MC/CUMM (3.8-5.5); Red Cell Distribution Width 19.9 % (9.3-17.3); White Blood Count 10.1 T/CUMM (4-12)
[2018-09-04] MEDS ORDERED: cefTRIAXone 1,000 MG in SODIUM CHLORIDE 0.9% 100 ML IV STA (17:20)
[2018-09-04 17:33] LABS: INR 0.9; PT Patient Result 10.3 SECS
[2018-09-04 17:40] LABS: Albumin 3.2 G/DL (3.4-5.0); Bilirubin,Total 0.4 MG/DL (0.2-1.0); Calcium 9.1 MG/DL (8.5-10.1); Osmolality,Calculated 288.1 MOS/KG (273-304); Potassium 4.7 MMOL/L (3.5-5.1); Total Protein 6.7 G/DL (6.4-8.3)
[2018-09-04 18:44] LABS: ABG Base Excess 0.8 MMOL/L (-2.5-2.5); ABG Oxygen Saturation 93.1 % (95-100); ABG PCO2 36.1 MM HG (35-48); ABG PH 7.441 (7.35-7.45); ABG PO2 66.4 MM HG (80-95); ABG TCO2 21.3 MMOL/L (23-27); Allen Test Positive; Pt O2 Delivery Device Other
[2018-09-04] MEDS ORDERED: ACETAMINOPHEN 500 MG TABLET PO PRN (19:36)
[2018-09-04] MEDS ORDERED: ONDANSETRON 4 MG/2 ML VIAL IV PRN (19:36)
[2018-09-04] MEDS ORDERED: ALUMINUM/MAGNES/SIMETH MAX STR 30 ML UDCUP PO PRN (22:26)
[2018-09-04] MEDS: ALBUTEROL 2.5 MG/3 ML NEB RESP TX PRN (22:35)
[2018-09-05] MEDS: ALBUTEROL/IPRATROPIUM 3 ML NEB RESP TX SCH ×4 (01:09→19:26)
[2018-09-05] MEDS: methylPREDNISolone SOD SUC 40 MG/1 ML VIAL IV SCH ×3 (02:00→17:43)
[2018-09-05] MEDS: AZITHROMYCIN INJ 500 MG in SODIUM CHLORIDE 0.9% 250 ML IV SCH ×2 (02:00→22:46)
[2018-09-05] MEDS: SODIUM CHLORIDE 0.45% 1,000 ML IV SCH (02:00)
[2018-09-05] MEDS: APIXABAN 2.5 MG TABLET PO SCH ×3 (02:15→22:00)
[2018-09-05 05:16] LABS: Basophils % 0.1 % (0.0-0.8); Hematocrit 39.6 VOL% (42.0-52.0); Hemoglobin 12.1 GM/DL (14.0-18.0); Immature Granulocytes % 1.2 %; Immature Granulocytes Absolute 0.08 #; Lymphocytes # 0.5 10*3/uL (1.4-4.0); Lymphocytes % 6.6 % (21.2-54.2); Mean Corpuscular HGB Conc 30.6 GM/DL (32-36); Mean Corpuscular Hemoglobin 26 PG (27-34); Mean Corpuscular Volume 85.5 FL (87-102); Mean Platelet Volume 10.9 FL (9.6-12.0); Monocytes # 0.1 10*3/uL (0.11-0.8); Monocytes % 1.5 % (1.7-12.7); Neutrophils # 6.2 10*3/uL (1.4-7.4); Neutrophils % 90.6 % (38.7-73.9); Platelet Count 167 T/CUMM (130-400); Red Blood Count 4.63 MC/CUMM (3.8-5.5); Red Cell Distribution Width 18.9 % (9.3-17.3); White Blood Count 6.9 T/CUMM (4-12)
[2018-09-05 05:25] LABS: Calcium 8.3 MG/DL (8.5-10.1); Osmolality,Calculated 286.5 MOS/KG (273-304); Potassium 4.8 MMOL/L (3.5-5.1)
[2018-09-05 05:37] LABS: Band Neutrophils 2 % (0-10); Hypochromasia 1+; Lymphocytes 6 % (20-55); Platelet Estimate Adequate; Segmented Neutrophils 90 % (50-85); Total Cells Counted 100
[2018-09-05] MEDS: ALBUTEROL 2.5 MG/3 ML NEB RESP TX PRN (06:51)
[2018-09-05] MEDS: MONTELUKAST 10 MG TABLET PO SCH (09:18)
[2018-09-05] MEDS: PANTOPRAZOLE 40 MG VIAL IV SCH (09:19)
[2018-09-05 09:58] LABS: Allen Test Positive; Pt O2 Delivery Device Other
[2018-09-05 10:01] LABS: ABG Base Excess 0.5 MMOL/L (-2.5-2.5); ABG HCO3 24.8 MMOL/L (20-26); ABG Oxygen Saturation 92.6 % (95-100); ABG PH 7.429 (7.35-7.45); ABG PO2 65.9 MM HG (80-95); ABG TCO2 21.4 MMOL/L (23-27)
[2018-09-05 10:36] LABS: % Iron Saturation 14.3 % (18-50)
[2018-09-05 10:47] LABS: Folate 19.6 NG/ML (5.4-24.0)
[2018-09-05] MEDS: THEOPHYLLINE ER (24 HR) 200 MG CAPSULE PO SCH (13:30)
[2018-09-05] MEDS: BUDESONIDE/FORMOTEROL 160-4.5 INHALER 6 GM INH SCH ×2 (16:38→22:00)
[2018-09-05] MEDS: cefTRIAXone 1,000 MG in SYRINGE 1 EACH IV SCH (19:39)
[2018-09-05] MEDS: DILTIAZEM CD 180 MG CAPSULE PO SCH (21:59)
[2018-09-06] MEDS: ALBUTEROL/IPRATROPIUM 3 ML NEB RESP TX SCH ×4 (00:24→19:25)
[2018-09-06] MEDS: methylPREDNISolone SOD SUC 40 MG/1 ML VIAL IV SCH ×3 (00:45→17:42)
[2018-09-06 04:49] LABS: Basophils % 0.1 % (0.0-0.8); Hematocrit 36.4 VOL% (42.0-52.0); Hemoglobin 11.4 GM/DL (14.0-18.0); Immature Granulocytes Absolute 0.16 #; Lymphocytes # 0.5 10*3/uL (1.4-4.0); Lymphocytes % 3.1 % (21.2-54.2); Mean Corpuscular HGB Conc 31.3 GM/DL (32-36); Mean Corpuscular Hemoglobin 27 PG (27-34); Mean Corpuscular Volume 84.8 FL (87-102); Mean Platelet Volume 10.8 FL (9.6-12.0); Monocytes # 0.5 10*3/uL (0.11-0.8); Neutrophils # 15.2 10*3/uL (1.4-7.4); Neutrophils % 92.8 % (38.7-73.9); Platelet Count 178 T/CUMM (130-400); Red Blood Count 4.29 MC/CUMM (3.8-5.5); Red Cell Distribution Width 18.6 % (9.3-17.3); White Blood Count 16.3 T/CUMM (4-12)
[2018-09-06 05:03] LABS: Calcium 8.3 MG/DL (8.5-10.1); Osmolality,Calculated 290.3 MOS/KG (273-304); Potassium 4.3 MMOL/L (3.5-5.1)
[2018-09-06 05:15] LABS: Hypochromasia 1+; Lymphocytes 1 % (20-55); Microcytosis 1+; Platelet Estimate Adequate; Segmented Neutrophils 95 % (50-85); Total Cells Counted 100
[2018-09-06] MEDS: SODIUM CHLORIDE 0.45% 1,000 ML IV SCH (05:24)
[2018-09-06] MEDS: DILTIAZEM CD 180 MG CAPSULE PO SCH ×2 (09:32→22:55)
[2018-09-06] MEDS: APIXABAN 2.5 MG TABLET PO SCH ×2 (09:32→22:55)
[2018-09-06] MEDS: MONTELUKAST 10 MG TABLET PO SCH (09:32)
[2018-09-06] MEDS: THEOPHYLLINE ER (24 HR) 200 MG CAPSULE PO SCH (09:32)
[2018-09-06] MEDS: PANTOPRAZOLE 40 MG VIAL IV SCH (09:36)
[2018-09-06] MEDS: BUDESONIDE/FORMOTEROL 160-4.5 INHALER 6 GM INH SCH ×2 (09:40→22:57)
[2018-09-06] MEDS: ALBUTEROL 2 MG TABLET PO SCH ×3 (11:07→23:57)
[2018-09-06] MEDS: cefTRIAXone 1,000 MG in SYRINGE 1 EACH IV SCH (20:50)
[2018-09-07] MEDS: ALBUTEROL/IPRATROPIUM 3 ML NEB RESP TX SCH ×4 (00:08→19:37)
[2018-09-07] MEDS: methylPREDNISolone SOD SUC 40 MG/1 ML VIAL IV SCH ×3 (01:34→17:49)
[2018-09-07 05:08] LABS: Basophils % 0.1 % (0.0-0.8); Hematocrit 35.9 VOL% (42.0-52.0); Hemoglobin 11.1 GM/DL (14.0-18.0); Immature Granulocytes % 0.9 %; Immature Granulocytes Absolute 0.15 #; Lymphocytes # 0.4 10*3/uL (1.4-4.0); Lymphocytes % 2.4 % (21.2-54.2); Mean Corpuscular HGB Conc 30.9 GM/DL (32-36); Mean Corpuscular Hemoglobin 26 PG (27-34); Mean Corpuscular Volume 85.5 FL (87-102); Mean Platelet Volume 11.1 FL (9.6-12.0); Monocytes # 0.6 10*3/uL (0.11-0.8); Monocytes % 3.4 % (1.7-12.7); NRBC # 0.02 10*3/uL; Neutrophils # 15.2 10*3/uL (1.4-7.4); Neutrophils % 93.2 % (38.7-73.9); Platelet Count 190 T/CUMM (130-400); Red Cell Distribution Width 18.6 % (9.3-17.3); White Blood Count 16.3 T/CUMM (4-12)
[2018-09-07 05:24] LABS: Calcium 8.4 MG/DL (8.5-10.1); Osmolality,Calculated 288.3 MOS/KG (273-304); Potassium 4.4 MMOL/L (3.5-5.1)
[2018-09-07 05:39] LABS: Segmented Neutrophils 97 % (50-85); Total Cells Counted 100
[2018-09-07 05:40] LABS: Anisocytosis Slight; Microcytosis Slight
[2018-09-07 05:41] LABS: Platelet Estimate Normal
[2018-09-07] MEDS: SODIUM CHLORIDE 0.45% 1,000 ML IV SCH (06:35)
[2018-09-07] MEDS: ALBUTEROL 2 MG TABLET PO SCH ×3 (06:43→22:54)
[2018-09-07] MEDS: PANTOPRAZOLE 40 MG VIAL IV SCH (08:27)
[2018-09-07] MEDS: APIXABAN 2.5 MG TABLET PO SCH ×2 (08:27→22:53)
[2018-09-07] MEDS: MONTELUKAST 10 MG TABLET PO SCH (08:27)
[2018-09-07] MEDS: THEOPHYLLINE ER (24 HR) 200 MG CAPSULE PO SCH (08:27)
[2018-09-07] MEDS: DILTIAZEM CD 180 MG CAPSULE PO SCH ×2 (08:27→22:54)
[2018-09-07] MEDS: BUDESONIDE/FORMOTEROL 160-4.5 INHALER 6 GM INH SCH ×2 (08:31→22:59)
[2018-09-07] MEDS: POLYETHYLENE GLYCOL POWDER 17 GM PACK PO SCH (11:58)
[2018-09-07] MEDS: FLUCONAZOLE 200 MG TABLET PO SCH (11:58)
[2018-09-07] MEDS: cefTRIAXone 1,000 MG in SYRINGE 1 EACH IV SCH (22:59)
[2018-09-08] MEDS: ALBUTEROL/IPRATROPIUM 3 ML NEB RESP TX SCH ×3 (00:07→13:45)
[2018-09-08] MEDS: methylPREDNISolone SOD SUC 40 MG/1 ML VIAL IV SCH ×2 (01:42→10:24)
[2018-09-08 04:42] LABS: Basophils % 0.1 % (0.0-0.8); Hematocrit 36.9 VOL% (42.0-52.0); Hemoglobin 11.3 GM/DL (14.0-18.0); Immature Granulocytes % 1.4 %; Immature Granulocytes Absolute 0.22 #; Lymphocytes # 0.4 10*3/uL (1.4-4.0); Lymphocytes % 2.4 % (21.2-54.2); Mean Corpuscular HGB Conc 30.6 GM/DL (32-36); Mean Corpuscular Hemoglobin 27 PG (27-34); Mean Corpuscular Volume 86.4 FL (87-102); Mean Platelet Volume 10.5 FL (9.6-12.0); Monocytes # 0.5 10*3/uL (0.11-0.8); Monocytes % 3.5 % (1.7-12.7); Neutrophils # 14.3 10*3/uL (1.4-7.4); Neutrophils % 92.6 % (38.7-73.9); Platelet Count 196 T/CUMM (130-400); Red Blood Count 4.27 MC/CUMM (3.8-5.5); Red Cell Distribution Width 18.6 % (9.3-17.3); White Blood Count 15.4 T/CUMM (4-12)
[2018-09-08 04:53] LABS: Calcium 8.3 MG/DL (8.5-10.1); Osmolality,Calculated 290.1 MOS/KG (273-304); Potassium 4.3 MMOL/L (3.5-5.1)
[2018-09-08] MEDS: SODIUM CHLORIDE 0.45% 1,000 ML IV SCH (06:10)
[2018-09-08] MEDS: ALBUTEROL 2 MG TABLET PO SCH (06:11)
[2018-09-08 06:23] LABS: Hypochromasia 1+; Lymphocytes 1 % (20-55); Microcytosis 1+; Nucleated Red Blood Cells 1 (0-5); Segmented Neutrophils 95 % (50-85); Total Cells Counted 100
[2018-09-08 06:24] LABS: Platelet Estimate Adequate
[2018-09-08] MEDS: POLYETHYLENE GLYCOL POWDER 17 GM PACK PO SCH (10:12)
[2018-09-08] MEDS: MONTELUKAST 10 MG TABLET PO SCH (10:12)
[2018-09-08] MEDS: FLUCONAZOLE 200 MG TABLET PO SCH (10:13)
[2018-09-08] MEDS: DILTIAZEM CD 180 MG CAPSULE PO SCH (10:13)
[2018-09-08] MEDS: APIXABAN 2.5 MG TABLET PO SCH (10:13)
[2018-09-08] MEDS: THEOPHYLLINE ER (24 HR) 200 MG CAPSULE PO SCH (10:14)
[2018-09-08] MEDS: BUDESONIDE/FORMOTEROL 160-4.5 INHALER 6 GM INH SCH (10:15)
[2018-09-08] MEDS: PANTOPRAZOLE 40 MG VIAL IV SCH (10:25)
[2018-09-08 11:30] VITALS: BP 122/64
== END 2018-09-08 13:40 | disposition home health service (06) | DRG 190 ==
LOC: N.ED 16:16 → SUATTDRO 19:36 → N.EDINP 19:36 → N.TELEN 21:32
PROVIDERS: ADMIT Internal Medicine Cardiovascular Disease; ATTEND Hospitalist

== ENCOUNTER 2018-09-26 11:14 | Inpatient (IN) ==
[2018-09-26] MEDS ORDERED: LEVOFLOXACIN INJ 750 MG in PREMIX 1 EACH IV STA (11:35)
[2018-09-26] MEDS ORDERED: ALBUTEROL/IPRATROPIUM 3 ML NEB RESP TX STA (11:35)
[2018-09-26] MEDS ORDERED: methylPREDNISolone SOD SUC 125 MG/2 ML VIAL IV STA (11:35)
[2018-09-26] MEDS ORDERED: DILTIAZEM 50 MG/10 ML VIAL IV STA (11:36)
[2018-09-26 12:13] LABS: Basophils % 0.3 % (0.0-0.8); Hematocrit 44.1 VOL% (42.0-52.0); Hemoglobin 13.6 GM/DL (14.0-18.0); Immature Granulocytes % 1.9 %; Immature Granulocytes Absolute 0.25 #; Lymphocytes # 0.5 10*3/uL (1.4-4.0); Lymphocytes % 3.5 % (21.2-54.2); Mean Corpuscular HGB Conc 30.8 GM/DL (32-36); Mean Corpuscular Volume 84.6 FL (87-102); Mean Platelet Volume 10.4 FL (9.6-12.0); Monocytes % 4.2 % (1.7-12.7); Neutrophils % 90.1 % (38.7-73.9); Platelet Count 118 T/CUMM (130-400); Red Blood Count 5.21 MC/CUMM (3.8-5.5); Red Cell Distribution Width 19.2 % (9.3-17.3); White Blood Count 13.2 T/CUMM (4-12)
[2018-09-26 12:33] LABS: Albumin 2.8 G/DL (3.4-5.0); Bilirubin,Total 0.7 MG/DL (0.2-1.0); Calcium 8.7 MG/DL (8.5-10.1); Osmolality,Calculated 278.8 MOS/KG (273-304); Total Protein 6.1 G/DL (6.4-8.3)
[2018-09-26 12:34] LABS: Band Neutrophils 8 % (0-10); Hypochromasia 1+; Lymphocytes 2 % (20-55); Microcytosis 1+; Segmented Neutrophils 81 % (50-85); Total Cells Counted 100
[2018-09-26 12:36] LABS: Platelet Estimate Adequate
[2018-09-26] MEDS ORDERED: MORPHINE 4 MG/1 ML VIAL IV PRN (14:10)
[2018-09-26] MEDS ORDERED: ONDANSETRON 4 MG/2 ML VIAL IV PRN (14:10)
[2018-09-26] MEDS: ALBUTEROL/IPRATROPIUM 3 ML NEB RESP TX PRN (17:55)
[2018-09-26] MEDS: dilTIAZem Drip 125 MG/125 ML PREMIX IV SCH (18:59)
[2018-09-26] MEDS: methylPREDNISolone SOD SUC 40 MG/1 ML VIAL IV SCH (20:04)
[2018-09-26] MEDS: APIXABAN 2.5 MG TABLET PO SCH (20:05)
[2018-09-26] MEDS: BUDESONIDE/FORMOTEROL 160-4.5 INHALER 6 GM INH SCH (20:06)
[2018-09-27] MEDS: ALBUTEROL/IPRATROPIUM 3 ML NEB RESP TX SCH ×4 (02:05→19:35)
[2018-09-27] MEDS: dilTIAZem Drip 125 MG/125 ML PREMIX IV SCH (03:18)
[2018-09-27] MEDS: methylPREDNISolone SOD SUC 40 MG/1 ML VIAL IV SCH ×3 (03:18→17:53)
[2018-09-27 05:06] LABS: Basophils % 0.2 % (0.0-0.8); Hematocrit 38.9 VOL% (42.0-52.0); Hemoglobin 12.1 GM/DL (14.0-18.0); Immature Granulocytes % 1.5 %; Immature Granulocytes Absolute 0.16 #; Lymphocytes # 0.3 10*3/uL (1.4-4.0); Lymphocytes % 2.5 % (21.2-54.2); Mean Corpuscular HGB Conc 31.1 GM/DL (32-36); Mean Platelet Volume 10.8 FL (9.6-12.0); Monocytes % 3.3 % (1.7-12.7); Neutrophils % 92.5 % (38.7-73.9); Platelet Count 113 T/CUMM (130-400); Red Blood Count 4.63 MC/CUMM (3.8-5.5); Red Cell Distribution Width 18.7 % (9.3-17.3)
[2018-09-27 05:27] LABS: Calcium 8.9 MG/DL (8.5-10.1); Osmolality,Calculated 283.7 MOS/KG (273-304); Risk Ratio 2.15; Thyroid Stimulating Hormone 0.391 uIU/ml (0.358-3.74); VLDL CHOLESTEROL 14.6 MG/DL
[2018-09-27 06:33] LABS: Band Neutrophils 3 % (0-10); Lymphocytes 5 % (20-55); Metamyelocytes 1 %; Segmented Neutrophils 84 % (50-85); Total Cells Counted 100
[2018-09-27 06:34] LABS: Hypochromasia Slight; Platelet Estimate Decreased
[2018-09-27] MEDS ORDERED: MONTELUKAST 10 MG TABLET PO SCH (09:00)
[2018-09-27] MEDS: PANTOPRAZOLE 40 MG TABLET PO SCH (09:55)
[2018-09-27] MEDS: APIXABAN 2.5 MG TABLET PO SCH (09:55)
[2018-09-27] MEDS: BUDESONIDE/FORMOTEROL 160-4.5 INHALER 6 GM INH SCH ×2 (09:56→21:42)
[2018-09-27] MEDS: ALBUTEROL/IPRATROPIUM 3 ML NEB RESP TX PRN (10:25)
[2018-09-27] MEDS ORDERED: FUROSEMIDE 40 MG/4 ML VIAL IV ONE (11:07)
[2018-09-27] MEDS: NEBIVOLOL 5 MG TABLET PO SCH ×2 (11:16→21:42)
[2018-09-27] MEDS: DILTIAZEM CD 180 MG CAPSULE PO SCH ×2 (11:17→21:41)
[2018-09-27] MEDS ORDERED: ALBUTEROL 2.5 MG/3 ML NEB RESP TX PRN (11:24)
[2018-09-27] MEDS: DORNASE ALFA 2.5 MG/2.5 ML VIAL RESP TX SCH ×2 (11:31→19:35)
[2018-09-27] MEDS: APIXABAN 5 MG TABLET PO SCH ×2 (11:47→21:42)
[2018-09-27] MEDS ORDERED: LEVOFLOXACIN INJ 750 MG in PREMIX 1 EACH IV SCH (12:00)
[2018-09-27] MEDS ORDERED: AMINOPHYLLINE 250 MG in SODIUM CHLORIDE 0.9% 100 ML IV ONE ×3 (12:00→13:32)
[2018-09-27] MEDS ORDERED: AMINOPHYLLINE 500 MG in SODIUM CHLORIDE 0.9% 480 ML IV SCH ×2 (12:30→17:56)
[2018-09-27] MEDS: MONTELUKAST 10 MG TABLET PO SCH (21:41)
[2018-09-28] MEDS: ALBUTEROL/IPRATROPIUM 3 ML NEB RESP TX SCH ×4 (00:59→19:23)
[2018-09-28] MEDS: methylPREDNISolone SOD SUC 40 MG/1 ML VIAL IV SCH ×5 (01:25→23:20)
[2018-09-28 05:11] LABS: Basophils % 0.2 % (0.0-0.8); Hematocrit 37.7 VOL% (42.0-52.0); Hemoglobin 11.9 GM/DL (14.0-18.0); Immature Granulocytes % 1.3 %; Immature Granulocytes Absolute 0.19 #; Lymphocytes # 0.3 10*3/uL (1.4-4.0); Lymphocytes % 1.8 % (21.2-54.2); Mean Corpuscular HGB Conc 31.6 GM/DL (32-36); Mean Platelet Volume 11.3 FL (9.6-12.0); Monocytes % 3.1 % (1.7-12.7); NRBC # 0.04 10*3/uL; Neutrophils % 93.6 % (38.7-73.9); Platelet Count 133 T/CUMM (130-400); Red Blood Count 4.54 MC/CUMM (3.8-5.5); Red Cell Distribution Width 18.8 % (9.3-17.3); White Blood Count 14.6 T/CUMM (4-12)
[2018-09-28 05:29] LABS: Calcium 8.7 MG/DL (8.5-10.1); Osmolality,Calculated 282.8 MOS/KG (273-304)
[2018-09-28 05:34] LABS: Band Neutrophils 1 % (0-10); Lymphocytes 1 % (20-55); Platelet Estimate Decreased; Polychromasia Few; Segmented Neutrophils 95 % (50-85); Total Cells Counted 100
[2018-09-28 05:35] LABS: Hypochromasia Slight
[2018-09-28] MEDS: DORNASE ALFA 2.5 MG/2.5 ML VIAL RESP TX SCH ×2 (07:13→19:23)
[2018-09-28] MEDS: DILTIAZEM CD 180 MG CAPSULE PO SCH ×2 (08:28→20:50)
[2018-09-28] MEDS: NEBIVOLOL 5 MG TABLET PO SCH ×2 (08:28→20:50)
[2018-09-28] MEDS: PANTOPRAZOLE 40 MG TABLET PO SCH (08:28)
[2018-09-28] MEDS: APIXABAN 5 MG TABLET PO SCH ×2 (08:28→20:50)
[2018-09-28] MEDS: MONTELUKAST 10 MG TABLET PO SCH ×2 (08:28→20:50)
[2018-09-28] MEDS: BUDESONIDE/FORMOTEROL 160-4.5 INHALER 6 GM INH SCH ×2 (08:29→20:51)
[2018-09-28] MEDS: FERROUS SULFATE 325 MG TABLET PO SCH ×2 (10:45→20:50)
[2018-09-28] MEDS: THEOPHYLLINE ER (24 HR) 200 MG CAPSULE PO SCH (10:45)
[2018-09-28] MEDS: LEVOFLOXACIN INJ 500 MG in PREMIX 1 EACH IV SCH (10:47)
[2018-09-28] MEDS ORDERED: ZALEPLON 5 MG CAPSULE PO PRN (10:49)
[2018-09-29] MEDS: ALBUTEROL/IPRATROPIUM 3 ML NEB RESP TX SCH ×4 (01:52→19:33)
[2018-09-29 06:16] LABS: Calcium 8.9 MG/DL (8.5-10.1); Osmolality,Calculated 287.5 MOS/KG (273-304)
[2018-09-29 06:17] LABS: Basophils % 0.3 % (0.0-0.8); Hematocrit 37.5 VOL% (42.0-52.0); Hemoglobin 11.6 GM/DL (14.0-18.0); Immature Granulocytes % 1.9 %; Immature Granulocytes Absolute 0.28 #; Lymphocytes # 0.3 10*3/uL (1.4-4.0); Mean Corpuscular HGB Conc 30.9 GM/DL (32-36); Mean Corpuscular Volume 84.8 FL (87-102); Mean Platelet Volume 10.4 FL (9.6-12.0); Monocytes % 3.1 % (1.7-12.7); NRBC # 0.02 10*3/uL; Neutrophils % 92.7 % (38.7-73.9); Platelet Count 130 T/CUMM (130-400); Red Blood Count 4.42 MC/CUMM (3.8-5.5); Red Cell Distribution Width 18.4 % (9.3-17.3); White Blood Count 14.4 T/CUMM (4-12)
[2018-09-29 06:24] LABS: PT Patient Result 10.4 SECS; Partial Thromboplastin Time 25.7 SECS (0-40)
[2018-09-29] MEDS: methylPREDNISolone SOD SUC 40 MG/1 ML VIAL IV SCH ×4 (06:35→23:07)
[2018-09-29 06:45] LABS: Band Neutrophils 2 % (0-10); Hypochromasia 1+; Lymphocytes 2 % (20-55); Platelet Estimate Normal; Segmented Neutrophils 93 % (50-85); Total Cells Counted 100
[2018-09-29] MEDS: DORNASE ALFA 2.5 MG/2.5 ML VIAL RESP TX SCH ×2 (07:55→19:33)
[2018-09-29] MEDS ORDERED: MEPERIDINE 50 MG/1 ML VIAL IM ONE (08:00)
[2018-09-29] MEDS ORDERED: BENZONATATE 100 MG CAPSULE PO ONE (08:00)
[2018-09-29] MEDS ORDERED: diphenhydrAMINE 50 MG/1 ML VIAL IM ONE (08:00)
[2018-09-29] MEDS ORDERED: MIDAZOLAM 2 MG/2 ML VIAL ONE (08:20)
[2018-09-29] MEDS ORDERED: LIDOCAINE 2% 20 ML VIAL RESP TX ONE (08:30)
[2018-09-29] MEDS ORDERED: LIDOCAINE 1% 20 ML VIAL MISC INJ ONE (08:30)
[2018-09-29] MEDS ORDERED: LIDOCAINE 2% VISCOUS 100 ML BOTTLE SWISH/SPIT ONE (08:30)
[2018-09-29] MEDS ORDERED: MIDAZOLAM 2 MG/2 ML VIAL IV ONE (09:00)
[2018-09-29] MEDS: PANTOPRAZOLE 40 MG TABLET PO SCH (11:59)
[2018-09-29] MEDS: THEOPHYLLINE ER (24 HR) 200 MG CAPSULE PO SCH (11:59)
[2018-09-29] MEDS: MONTELUKAST 10 MG TABLET PO SCH ×2 (11:59→20:20)
[2018-09-29] MEDS: NEBIVOLOL 5 MG TABLET PO SCH ×2 (11:59→20:20)
[2018-09-29] MEDS: DILTIAZEM CD 180 MG CAPSULE PO SCH ×2 (12:00→20:20)
[2018-09-29] MEDS: APIXABAN 5 MG TABLET PO SCH ×2 (12:00→20:20)
[2018-09-29] MEDS: FERROUS SULFATE 325 MG TABLET PO SCH ×2 (12:00→20:20)
[2018-09-29] MEDS: LEVOFLOXACIN INJ 500 MG in PREMIX 1 EACH IV SCH (12:04)
[2018-09-29] MEDS: BUDESONIDE/FORMOTEROL 160-4.5 INHALER 6 GM INH SCH ×2 (12:08→20:20)
[2018-09-30] MEDS: ALBUTEROL/IPRATROPIUM 3 ML NEB RESP TX SCH ×4 (00:50→20:29)
[2018-09-30 04:28] LABS: Basophils % 0.2 % (0.0-0.8); Immature Granulocytes % 2.8 %; Immature Granulocytes Absolute 0.34 #; Lymphocytes # 0.3 10*3/uL (1.4-4.0); Lymphocytes % 2.1 % (21.2-54.2); Mean Corpuscular Volume 86.2 FL (87-102); Mean Platelet Volume 10.4 FL (9.6-12.0); Monocytes % 3.1 % (1.7-12.7); NRBC # 0.02 10*3/uL; Neutrophils % 91.8 % (38.7-73.9); Platelet Count 139 T/CUMM (130-400); Red Blood Count 4.64 MC/CUMM (3.8-5.5); Red Cell Distribution Width 18.6 % (9.3-17.3); White Blood Count 12.1 T/CUMM (4-12)
[2018-09-30] MEDS: methylPREDNISolone SOD SUC 40 MG/1 ML VIAL IV SCH ×2 (04:31→13:04)
[2018-09-30 04:58] LABS: Osmolality,Calculated 289.4 MOS/KG (273-304)
[2018-09-30 05:21] LABS: Anisocytosis 1+; Hypochromasia Slight; Lymphocytes 4 % (20-55); Microcytosis Slight; Segmented Neutrophils 91 % (50-85); Total Cells Counted 100
[2018-09-30 05:22] LABS: Platelet Estimate Adequate
[2018-09-30] MEDS: DORNASE ALFA 2.5 MG/2.5 ML VIAL RESP TX SCH ×2 (07:16→20:30)
[2018-09-30] MEDS: MONTELUKAST 10 MG TABLET PO SCH ×2 (09:33→20:39)
[2018-09-30] MEDS: FERROUS SULFATE 325 MG TABLET PO SCH ×2 (09:33→20:40)
[2018-09-30] MEDS: PANTOPRAZOLE 40 MG TABLET PO SCH (09:33)
[2018-09-30] MEDS: NEBIVOLOL 5 MG TABLET PO SCH ×2 (09:33→20:40)
[2018-09-30] MEDS: THEOPHYLLINE ER (24 HR) 200 MG CAPSULE PO SCH (09:33)
[2018-09-30] MEDS: APIXABAN 5 MG TABLET PO SCH ×2 (09:34→20:39)
[2018-09-30] MEDS: DILTIAZEM CD 180 MG CAPSULE PO SCH ×2 (09:34→20:39)
[2018-09-30] MEDS: BUDESONIDE/FORMOTEROL 160-4.5 INHALER 6 GM INH SCH ×2 (09:35→20:41)
[2018-09-30] MEDS: LEVOFLOXACIN INJ 500 MG in PREMIX 1 EACH IV SCH (09:42)
[2018-10-01] MEDS ORDERED: methylPREDNISolone SOD SUC 40 MG/1 ML VIAL IV SCH (01:00)
[2018-10-01] MEDS: ALBUTEROL/IPRATROPIUM 3 ML NEB RESP TX SCH ×4 (01:32→19:26)
[2018-10-01 04:22] LABS: Basophils % 0.3 % (0.0-0.8); Hematocrit 39.6 VOL% (42.0-52.0); Hemoglobin 12.1 GM/DL (14.0-18.0); Immature Granulocytes Absolute 0.55 #; Lymphocytes # 0.2 10*3/uL (1.4-4.0); Lymphocytes % 1.3 % (21.2-54.2); Mean Corpuscular HGB Conc 30.6 GM/DL (32-36); Mean Corpuscular Volume 85.5 FL (87-102); Monocytes % 3.7 % (1.7-12.7); Neutrophils % 90.7 % (38.7-73.9); Platelet Count 136 T/CUMM (130-400); Red Blood Count 4.63 MC/CUMM (3.8-5.5); Red Cell Distribution Width 18.6 % (9.3-17.3); White Blood Count 13.6 T/CUMM (4-12)
[2018-10-01 04:39] LABS: Calcium 8.9 MG/DL (8.5-10.1); Osmolality,Calculated 287.4 MOS/KG (273-304)
[2018-10-01 05:02] LABS: Lymphocytes 4 % (20-55); Segmented Neutrophils 93 % (50-85); Total Cells Counted 100
[2018-10-01 05:03] LABS: Anisocytosis Slight; Platelet Estimate Adequate
[2018-10-01] MEDS: DORNASE ALFA 2.5 MG/2.5 ML VIAL RESP TX SCH ×2 (07:34→19:26)
[2018-10-01] MEDS ORDERED: THEOPHYLLINE ER (24 HR) 200 MG CAPSULE PO SCH (09:31)
[2018-10-01] MEDS: DILTIAZEM CD 180 MG CAPSULE PO SCH ×2 (09:40→20:02)
[2018-10-01] MEDS: MONTELUKAST 10 MG TABLET PO SCH ×2 (09:40→20:03)
[2018-10-01] MEDS: methylPREDNISolone SOD SUC 40 MG/1 ML VIAL IV SCH ×2 (09:40→17:17)
[2018-10-01] MEDS: NEBIVOLOL 5 MG TABLET PO SCH ×2 (09:41→20:02)
[2018-10-01] MEDS: PANTOPRAZOLE 40 MG TABLET PO SCH (09:41)
[2018-10-01] MEDS: FERROUS SULFATE 325 MG TABLET PO SCH ×2 (09:41→20:02)
[2018-10-01] MEDS: APIXABAN 5 MG TABLET PO SCH ×2 (09:41→20:02)
[2018-10-01] MEDS: BUDESONIDE/FORMOTEROL 160-4.5 INHALER 6 GM INH SCH ×2 (09:44→20:03)
[2018-10-01] MEDS: LEVOFLOXACIN INJ 500 MG in PREMIX 1 EACH IV SCH (10:04)
[2018-10-01] MEDS: THEOPHYLLINE ER (24 HR) 200 MG CAPSULE PO SCH (10:17)
[2018-10-01] MEDS ORDERED: MAGNESIUM HYDROXIDE SUSP 30 ML UDCUP PO ONE (15:59)
[2018-10-02] MEDS: ALBUTEROL/IPRATROPIUM 3 ML NEB RESP TX SCH ×3 (00:08→11:31)
[2018-10-02] MEDS: methylPREDNISolone SOD SUC 40 MG/1 ML VIAL IV SCH ×2 (01:40→10:59)
[2018-10-02 04:45] LABS: Basophils % 0.2 % (0.0-0.8); Calcium 8.8 MG/DL (8.5-10.1); Hematocrit 40.7 VOL% (42.0-52.0); Hemoglobin 12.5 GM/DL (14.0-18.0); Immature Granulocytes % 5.1 %; Immature Granulocytes Absolute 0.66 #; Lymphocytes # 0.3 10*3/uL (1.4-4.0); Lymphocytes % 2.2 % (21.2-54.2); Mean Corpuscular HGB Conc 30.7 GM/DL (32-36); Mean Corpuscular Volume 85.7 FL (87-102); Mean Platelet Volume 10.5 FL (9.6-12.0); Monocytes % 3.3 % (1.7-12.7); NRBC # 0.02 10*3/uL; Neutrophils % 89.2 % (38.7-73.9); Osmolality,Calculated 293.1 MOS/KG (273-304); Platelet Count 138 T/CUMM (130-400); Red Blood Count 4.75 MC/CUMM (3.8-5.5); Red Cell Distribution Width 18.6 % (9.3-17.3); White Blood Count 12.9 T/CUMM (4-12)
[2018-10-02 06:35] LABS: Band Neutrophils 1 % (0-10); Hypochromasia 1+; Lymphocytes 6 % (20-55); Platelet Estimate Adequate; Segmented Neutrophils 90 % (50-85); Total Cells Counted 100
[2018-10-02] MEDS: DILTIAZEM CD 180 MG CAPSULE PO SCH (09:05)
[2018-10-02] MEDS: FERROUS SULFATE 325 MG TABLET PO SCH (09:05)
[2018-10-02] MEDS: PANTOPRAZOLE 40 MG TABLET PO SCH (09:05)
[2018-10-02] MEDS: NEBIVOLOL 5 MG TABLET PO SCH (09:05)
[2018-10-02] MEDS: APIXABAN 5 MG TABLET PO SCH (09:05)
[2018-10-02] MEDS: MONTELUKAST 10 MG TABLET PO SCH (09:05)
[2018-10-02] MEDS: BUDESONIDE/FORMOTEROL 160-4.5 INHALER 6 GM INH SCH (09:11)
[2018-10-02] MEDS ORDERED: SODIUM PHOSPHATE ENEMA 133 ML BOTTLE RECTAL PRN (09:13)
[2018-10-02] MEDS ORDERED: ZINC OXIDE PASTE 113 GM TUBE TOP SCH (09:30)
[2018-10-02] MEDS ORDERED: MAGNESIUM HYDROXIDE SUSP 30 ML UDCUP PO PRN (09:51)
[2018-10-02] MEDS: DORNASE ALFA 2.5 MG/2.5 ML VIAL RESP TX SCH (10:20)
[2018-10-02] MEDS: LEVOFLOXACIN INJ 500 MG in PREMIX 1 EACH IV SCH (10:59)
[2018-10-02] MEDS ORDERED: methylPREDNISolone 4 MG TABLET PO SCH (13:00)
[2018-10-02 16:00] VITALS: BP 102/65
== END 2018-10-02 16:00 | disposition swing bed (61) | DRG 166 ==
LOC: EDBD → EDUNIT# → N.ED 11:14 → N.EDINP 14:10 → N.TELES 15:58
PROVIDERS: ADMIT Internal Medicine; ATTEND Internal Medicine